=== PATIENT | male | born 1990 | race Caucasian/White ===

== ENCOUNTER 2020-07-08 05:50 | Emergency (ER) | payer SELFPAY ==
[2016-11-11 07:29] VITALS: BMI 32.1
== END 2020-07-08 06:23 | disposition home or self-care (01) ==
LOC: ED 12:14
PROVIDERS: Emergency Provider Emergency Medicine
DX: K08.89 Other specified disorders of teeth and supporting structures (principal); F17.200 Nicotine dependence, unspecified, uncomplicated
CPT/HCPCS: 99283

== ENCOUNTER 2021-01-29 12:55 | Emergency (ER) | payer SELFPAY ==
[2021-01-29 12:55] VITALS: BP 160/98; PULSE 88; RESP 17; TEMP 36.9; O2SAT 98; BMI 32.1
--- NOTE | 2021-01-29 13:05 | EX.ED.DYSGE1 ---
HPI History of Present Illness Chief Complaint: Rash Narrative Narrative: Patient presents with a rash on his hands and left nipple, the rash on his hands he gets most marsh for the past few years, however the rash on his left nipple has been ongoing for 2 months. No fevers chills cough or congestion. No other symptoms. PFSH PFSH Home Medications albuterol sulfate [Ventolin HFA] 1 - 2 puff INHALATION Q4H PRN PRN #1 inhaler 11/11/16 [Rx Last Taken Unknown] pseudoephedrine-guaifenesin [Mucinex D ER 1,200-120 mg Tab] 1 ea PO BID 10 Days tab.er.12h 11/11/16 [Rx Last Taken Unknown] triamcinolone acetonide [Nasacort] 1 spray NS BID #1 nasal.sry 11/11/16 [Rx Last Taken Unknown] triamcinolone acetonide 1 applic TOPICAL TID #30 g 01/29/21 [Rx Last Taken Unknown] Allergy/AdvReac Type Severity Reaction Status Date / Time No Known Allergies Allergy Verified 01/29/21 12:56 Social History Smoking Status: Current every day smoker ROS ROS ED ROS Narrative Past medical history: Reviewed, negative Medications: Reviewed Social history: Noncontributory Review of systems: All systems negative except as indicated General: No fever ENT: No mucosal involvement Cardiovascular: Negative Musculoskeletal: As in HPI Skin: As in HPI Hematologic: No easy bleeding or easy bruising EXAM Physical Exam Narrative Exam Narrative: Physical exam General: Well nourished, Well developed, No Acute Distress Head: Normocephalic, Atraumatic Eyes: Conjunctiva not pale ENT: Moist mucous membranes no mucosal involvement. Neck: Supple, Nontender, No lymphadenopathy Cardiovascular: Normal pulses Respiratory: No distress Back: Nontender, Normal Inspection. Negative for: CVA tenderness Extremities: There are some slight plaques in between the fingers of the hands consistent with eczema Skin: Patient has plaque around the left nipple area consistent with eczema Const Vital Signs: 01/29/21 12:55 Temperature 98.4 F Temperature Source Temporal Pulse Rate 88 Respiratory Rate 17 Blood Pressure 160/98 H Blood Pressure Mean 118 Pulse Ox 98 Oxygen Delivery Method Room Air MDM MDM MDM Narrative Medical decision making narrative: Patient will be treated with steroid cream, I advised him to moisturize and follow-up with his doctor. Discharge Plan Triage Chief Complaint: Rash ED Provider: Armando Graves Dx/Rx/DC Orders Clinical Impression: AD (atopic dermatitis) Instructions: ED Atopic Dermatitis (Adult) Prescriptions: New triamcinolone acetonide 0.1 % cream 1 applic topical TID Qty: 30 RF: 0 No Action albuterol sulfate [Ventolin HFA] 1 INHALER inhaler 1 - 2 puff inhalation Q4H PRN PRN (Reason: Wheezing) Qty: 1 RF: 0 pseudoephedrine-guaifenesin [Mucinex D Maximum Strength] 1 EACH tablet extended release 12 hr 1 ea PO BID 10 Days RF: 0 triamcinolone acetonide [Nasacort] 1 SPRAY aerosol,spray 1 spray NS BID Qty: 1 RF: 0 Primary Care Provider: Care Physician,No Primary Referrals: Truong Wells MD [NON-STAFF] - 3-5 Days Care Physician,No Primary [Primary Care Provider] - Disposition Disposition: Home, Self Care
== END 2021-01-29 13:27 | disposition home or self-care (01) ==
LOC: ED 13:25
PROVIDERS: Emergency Provider Emergency Medicine
DX: L20.9 Atopic dermatitis, unspecified (principal); F17.200 Nicotine dependence, unspecified, uncomplicated
CPT/HCPCS: 99282

== ENCOUNTER 2021-02-25 10:31 | Emergency (ER) | payer SELFPAY ==
[2021-02-25 10:32] VITALS: BP 180/114; PULSE 114; RESP 18; TEMP 36.2; O2SAT 100; BMI 38.9
--- NOTE | 2021-02-25 10:34 | ED.RN ---
CALLED FOR EKG AT 1034.
--- NOTE | 2021-02-25 10:44 | EKG12_ITS ---
Test Reason : PALPS Blood Pressure : / mmHG Vent. Rate : 092 BPM Atrial Rate : 092 BPM P-R Int : 140 ms QRS Dur : 094 ms QT Int : 350 ms P-R-T Axes : 059 043 067 degrees QTc Int : 432 ms Normal sinus rhythm Normal ECG Confirmed by ADI MCBRIDE, MARY ([id number]), manager editorial KATHRYN ALVARADO ([id number]) on 02/27/2021 1:06:34 PM Referred By: SUNITHA Confirmed By:MARY JOSHI MD
--- NOTE | 2021-02-25 10:44 | EX.ED.DYSGE1 ---
HPI History of Present Illness Chief Complaint: Palpitations Detail of Chief Complaint: Palpitations and racing heart for several days Informant: patient Narrative Narrative: Patient presents to the emergency department complaining of palpitations and racing heart for the last several days. Patient is not sure if he is having increased anxiety as the cause of his symptoms. Patient states that he has not been officially diagnosed with anxiety or depression and is not on any medications. Patient states that he has been under a lot of stress and typically he has seasonal affective disorder where he feels more down in the wintertime. Over the last several days he is having hard time sleeping at night because he feels like his heart is racing or skipping beats. Patient states that sometimes when he lays on his left side feels like symptoms are worse. He denies any chest pain. Patient is concerned because his father has history of palpitations but is not sure what kind of palpitations. Patient denies any syncopal episodes. He denies recent illness. Patient tells me he is felt similar episodes in the past when he has been under stress. Prior similar symptoms: Yes PFSH PFSH Medical History Anxiety Asthma Depression Smoker Home Medications triamcinolone acetonide 1 applic TOPICAL TID #30 g 01/29/21 [Rx Last Taken Unknown] hydroxyzine pamoate [Vistaril] 25 mg PO Q8H PRN #20 cap 02/25/21 [Rx Last Taken Unknown] Allergy/AdvReac Type Severity Reaction Status Date / Time No Known Allergies Allergy Verified 02/25/21 10:32 Surgical History History of tonsillectomy and adenoidectomy Social History Smoking Status: Current every day smoker tobacco type: cigarettes ROS ROS ED Constitutional Constitutional ED: Reports systems reviewed and no addt'l complaints, except as documented; Denies body ache(s), change in weight or chills Eyes Eyes: Denies acute decrease in peripheral vision, change in vision, double vision or loss of vision ENT ENT ED: Reports none; Denies ear pain, lip swelling, loss taste/smell, neck pain, otalgia or sore throat Cardiovascular Cardiovascular: Reports none, palpitations and racing heartbeat; Denies abdominal pain, chest pain with activity, leg edema, lightheadedness, rapid heart rate or syncope Respiratory/Chest Respiratory/Chest: Reports none; Denies change in mental status, dry cough, dyspnea, hemoptysis, shortness of breath at rest or shortness of breath with exertion Gastrointestinal Gastrointestinal: Reports none; Denies abdominal pain, change in stool character, diarrhea, hematemesis, hematochezia, melena, rectal bleeding or vomiting Genitourinary Genitourinary ED: Reports none; Denies abdominal discomfort, anuria, dysuria, genital pain or polyuria Musculoskeletal Musculoskeletal: Reports none; Denies arthralgias, back pain, difficulty walking, extremity pain, muscle weakness or myalgias Integumentary Reports none; Denies abscess or rash Neurologic Neurologic: Reports none; Denies abnormal gait, confusion, focal weakness, frequent falls, headache(s), loss of vision, numbness, paresthesias, radicular pain, vertigo or weakness Psychiatric Psychiatric: Reports systems reviewed and no addt'l complaints, except as documented and none; Denies behavioral changes, confusion, difficulty concentrating, hallucinations, suicidal ideation, tactile hallucinations or visual hallucinations Endocrine Endocrinology: Denies none, cold intolerance, excessive sweating, fatigue or heat intolerance Hematologic/Lymphatic Hematologic/Lymphatic: Reports none; Denies anemia, easy bleeding or easy bruising Allergic/Immunologic Allergic/Immunologic ED: Denies as per HPI, none, lip swelling, mouth swelling, throat swelling, tongue swelling or hives EXAM Physical Exam Const Vital Signs: 02/25/21 10:32 02/25/21 11:05 Temperature 97.2 F L Temperature Source Temporal Pulse Rate 114 H Respiratory Rate 18 Respiratory Effort Normal Non-Labored Blood Pressure 180/114 H Blood Pressure Mean 136 Pulse Ox 100 Oxygen Delivery Method Room Air Positive well nourished and well developed General Appearance ED: well developed and NAD HEENT Reports TM's clear and moist mucous membranes normocephalic and atraumatic; Negative for trauma or tenderness Tympanic Membrane ED: Yes TM's clear Eyes PERRL and EOMs intact bilaterally General Eye ED: Negative for pale conjunctiva or scleral icterus Neck no lymphadenopathy, supple and no JVD General: Negative for tenderness Chest Wall inspection of chest normal and palpation of chest normal Chest: Negative for tenderness Resp normal respiratory effort and clear to auscultation bilaterally Effort and Inspection: Negative for respiratory distress or pain with movement Auscultation: Negative for rhonchi, wheezes or diminished lung sounds Cardio regular rate, regular rhythm, S1 normal heart sound, S2 normal heart sound and no murmurs Peripheral Pulses: pulses 2+ throughout GI normal to inspection, nondistended, normoactive bowel sounds, soft to palpation, non-tender, non-distended and no masses Back/Spine no CVA tenderness and no thoracic nor lumbar tenderness Extremity normal to inspection General Extremety ED: Negative for edema General Extremity: Negative for edema Neuro oriented x3, CN's II-XII intact bilaterally, no sensory deficits noted and gait normal Sensorium / Orientation: awake, alert, oriented to person, oriented to place and oriented to time Motor Exam: strength 5/5 throughout and strength abnormal Psych mental status grossly normal Skin no rashes or lesions noted and no wounds MDM MDM MDM Narrative Medical decision making narrative: EKG obtained arrival and patient placed on a monitoring and evaluation advisor. His work-up is unremarkable. No ectopy noted while he was here. I suspect symptoms may be stress related or anxiety related. I will write him for Vistaril as needed. Patient will be given referral to primary care physician for follow-up. He is advised to return if chest pain, persistent tachycardia, exertional dyspnea, or condition should worsen anyway. Lab Data Attestation: I reviewed the patient's lab results. Labs: Laboratory Results - last 24 hr 02/25/21 02/25/21 11:04 11:04 WBC 7.2 RBC 5.12 Hgb 14.9 Hct 43.2 MCV 84.4 MCH 29.1 MCHC 34.5 RDW Std Deviation 36.7 RDW Coeff of Maria Luz 12.1 Plt Count 345 MPV 9.1 Immature Gran % (Auto) 0.300 Neut % (Auto) 54.8 Lymph % (Auto) 32.4 Woodward % (Auto) 8.9 Eos % (Auto) 2.8 Baso % (Auto) 0.8 Absolute Neuts (auto) 4.0 Absolute Lymphs (auto) 2.34 Nucleated RBC % 0 Sodium 141 Potassium 3.4 L Chloride 109 H Carbon Dioxide 30.0 Anion Gap 2 L BUN 12 Creatinine 0.99 Estim Creat Clear Calc 118.32 Est GFR (MDRD) Af Amer 116 Est GFR (MDRD) Non-Af 96 BUN/Creatinine Ratio 12.1 Glucose 110 H Calcium 9.3 Troponin I High Sens 6 EKG Initial EKG: Comments: Sinus rhythm with a ventricular rate of 92 bpm with no acute ST segment changes Prior EKG tracings: not available for review Discharge Plan Triage Chief Complaint: Palpitations ED Provider: Isaac Monson Dx/Rx/DC Orders Clinical Impression: Heart palpitations, Anxiety Instructions: ED Anxiety Reaction, ED Palpitations Prescriptions: New hydroxyzine pamoate [Vistaril] 25 mg capsule 25 mg PO Q8H PRN (Reason: anxiety) Qty: 20 RF: 0 No Action triamcinolone acetonide 0.1 % cream 1 applic topical TID Qty: 30 RF: 0 Primary Care Provider: Care Physician,No Primary Referrals: Tab Gage MD [STAFF PHYSICIAN] - 3-5 Days Care Physician,No Primary [Primary Care Provider] - Disposition Disposition: Home, Self Care
--- NOTE | 2021-02-25 10:48 | NURSING ---
NO OLD EKGS
[2021-02-25 11:15] LABS: Absolute Lymphocyte Count 2.34 X10^3/uL (0.83-4.51); Basophil# 0.06 X10^3/uL; Basophil% 0.8 % (0-1); Eosinophils% 2.8 % (0-5); Hematocrit 43.2 % (40-54); Hemoglobin 14.9 g/dL (13.0-16.5); Lymphocyte # 2.34 X10^3/ul (0.83-4.51); Lymphocyte % 32.4 % (19-41); Mean Corp Hgb Conc 34.5 g/dL (32-36); Mean Corpuscular Hgb 29.1 pg (27.0-32.0); Mean Corpuscular Volume 84.4 fL (80-94); Mean Platelet Vol. 9.1 fl (6.2-12.0); Monocyte# 0.64 X10^3/uL; Monocyte% 8.9 % (0-10); NRBC Flagged by Analyzer 0 % (0-5); Neutrophil # 3.97 X10^3/uL (2.7-7.7); Neutrophil % 54.8 % (47-70); Platelet Count 345 K/mm3 (150-450); RBC Distribution Width CV 12.1 % (11.6-14.6); RBC Distribution Width SD 36.7 fl (35.1-43.9); Red Blood Count 5.12 M/mm3 (4.6-6.2); White Blood Count 7.2 K/mm3 (4.4-11.0)
[2021-02-25 11:32] LABS: Anion Gap 2 (5-15); BUN 12 mg/dL (7-18); BUN/Creat Ratio 12.1 RATIO (10-20); Calcium,Total 9.3 mg/dL (8.5-10.1); Chloride 109 mmol/L (98-107); Creatinine, Serum 0.99 mg/dL (0.70-1.30); EST Glomerular Filtration Rate 96 mL/min (>60); Est Glom Filt Rate - Afr Amer 116 mL/min (>60); Estimated Creatinine Clearance 118.32 ml/min; Glucose 110 mg/dL (74-106); Potassium 3.4 mmol/L (3.5-5.1); Sodium Level 141 mmol/L (136-145); Troponin-I HS 6 pg/mL (3.0-78.0)
[2021-02-25 12:14] VITALS: BP 138/89; PULSE 79; RESP 20; O2SAT 98
== END 2021-02-25 12:15 | disposition home or self-care (01) ==
PROVIDERS: Emergency Provider Emergency Medicine
DX: R00.2 Palpitations (principal); F41.9 Anxiety disorder, unspecified; F17.210 Nicotine dependence, cigarettes, uncomplicated
CPT/HCPCS: 80048; 84484; 85025; 93005; 99283; A4216

== ENCOUNTER 2021-08-16 12:23 | Emergency (ER) | payer SELFPAY ==
[2021-08-16 12:24] VITALS: BP 165/112; PULSE 75; RESP 18; TEMP 36.7; O2SAT 98; BMI 38.2
[2021-08-16 12:25] VITALS: BP 165/112; PULSE 75; RESP 18; TEMP 36.7; O2SAT 98
[2021-08-16] MEDS: Naproxen 500 MG Tablet PO (13:00)
[2021-08-16] MEDS: Amox/Clavulanate 875 MG Tablet PO (13:00)
[2021-08-16 13:01] VITALS: RESP 18
--- NOTE | 2021-08-16 13:01 | EDS_ITS ---
HPI History of Present Illness Chief Complaint: Dental Narrative Narrative: 30-year-old male with history of dental issues presenting with dental pain on the right mandibular teeth. He states that is most of them that hurt. He denies any facial swelling. He denies any difficulty swallowing or breathing. No fever or chills. He does state that he had a problem with this about a year ago and was put on antibiotics but did not follow-up with a dental professional. He initially was going to go to [facility], but when he was told he would have to wait 2 months he canceled his appointment. He states he makes about 800 hours a month and cannot afford a dental procedure otherwise. PFSH PFSH Medical History Anxiety Asthma Depression Smoker Home Medications hydroxyzine pamoate [Vistaril] 25 mg PO Q8H PRN #20 cap 02/25/21 [Rx Last Taken Unknown] amoxicillin-pot clavulanate 1 tab PO BID #20 tab 08/16/21 [Rx Last Taken Unknown] naproxen [Naprosyn] 500 mg PO BID PRN #20 tab 08/16/21 [Rx Last Taken Unknown] Allergy/AdvReac Type Severity Reaction Status Date / Time No Known Allergies Allergy Verified 08/16/21 12:25 Surgical History History of tonsillectomy and adenoidectomy Social History Smoking Status: Current every day smoker tobacco type: cigarettes ROS ROS ED Constitutional Constitutional ED: Denies chills or fever(s) Eyes Eyes: Denies blurry vision or change in vision ENT ENT ED: Reports other Details: Dental pain ; Denies rhinorrhea or sore throat Cardiovascular Cardiovascular: Denies chest pain or palpitations Respiratory/Chest Respiratory/Chest: Denies cough or dyspnea Gastrointestinal Gastrointestinal: Denies abdominal pain, nausea or vomiting Genitourinary Genitourinary ED: Denies dysuria or hematuria Musculoskeletal Musculoskeletal: Denies arthralgias or myalgias Integumentary Denies abscess or rash Neurologic Neurologic: Denies headache(s) or weakness EXAM Physical Exam Const Vital Signs: 08/16/21 12:24 08/16/21 12:25 Temperature 98.1 F 98.1 F Temperature Source Temporal Oral Pulse Rate 75 75 Respiratory Rate 18 18 Blood Pressure 165/112 H 165/112 H Blood Pressure Mean 129 129 Pulse Ox 98 98 Oxygen Delivery Method Room Air Room Air Positive well nourished General Appearance ED: NAD HEENT HEENT Narrative: Multiple dental caries. He has tenderness palpation of the right mandibular teeth without any focal area of tenderness. No drainage. All of these teeth are in very poor repair. No sublingual edema. Tongue is nonswollen. Oropharynx patent without stridor. No submandibular fullness or tenderness. No lymphadenopathy. Negative for trauma Mouth ED: Yes lips normal, Yes tongue normal and Yes salivary gland normal Mouth: lips normal, tongue normal and salivary gland normal Teeth and Gingiva: caries and teeth discoloration Throat: posterior oropharynx normal Eyes PERRL and EOMs intact bilaterally Lymph Lymphatic: no lymphadenopathy noted Chest Wall inspection of chest normal Resp normal respiratory effort and clear to auscultation bilaterally Cardio regular rate and regular rhythm Neuro oriented x3 and CN's II-XII intact bilaterally Psych mental status grossly normal Skin no rashes or lesions noted MDM MDM MDM Narrative Medical decision making narrative: Patient with multiple dental caries and concern for dental infection as he has had this before. He had antibiotics about a year ago without follow-up. No facial swelling or sign of Ludewig's angina. Patient request antibiotics until he can get dental follow-up. He started on Augmentin in the ER and given Naprosyn for pain. He was given a dental referral sheet. Return precautions discussed. Impression: 1. Dental caries 2. Dental abscess Lab Data Attestation: I reviewed the patient's lab results. Discharge Plan Triage Chief Complaint: Dental ED Provider: Keith Alexis Dx/Rx/DC Orders Instructions: ED Dental Abscess Prescriptions: New amoxicillin-pot clavulanate 875-125 mg tablet 1 tab PO BID Qty: 20 RF: 0 naproxen [Naprosyn] 500 mg tablet 500 mg PO BID PRN (Reason: pain) Qty: 20 RF: 0 No Action hydroxyzine pamoate [Vistaril] 25 mg capsule 25 mg PO Q8H PRN (Reason: anxiety) Qty: 20 RF: 0 Primary Care Provider: Care Physician,No Primary Referrals: [facility] [Provider Group] Care Physician,No Primary [Primary Care Provider] - Disposition Disposition: Home, Self Care Discharge Date/Time: 08/16/21 13:02
== END 2021-08-16 13:02 | disposition home or self-care (01) ==
PROVIDERS: Emergency Provider Student in an Organized Health Care Education/Training Program; Visit Provider Student in an Organized Health Care Education/Training Program
DX: K02.9 Dental caries, unspecified (principal); K04.7 Periapical abscess without sinus; F17.210 Nicotine dependence, cigarettes, uncomplicated
CPT/HCPCS: 99283

== ENCOUNTER 2022-01-31 11:00 | Emergency (ER) | payer MEDICAID, SELFPAY ==
[2022-01-31 11:01] VITALS: BP 152/94; PULSE 92; RESP 18; TEMP 36.1; O2SAT 98; BMI 35.9
--- NOTE | 2022-01-31 11:11 | ED.VIS.DENTA ---
HPI <NIKOS Mcnulty - Last Filed: 01/31/22 11:44> History of Present Illness Chief Complaint: Dental Narrative Narrative: 31-year-old male states his right upper wisdom tooth has been cracked for a long time and a week ago it started becoming painful. His face seems swollen in the mornings but he does sleep on his right side. The swelling kind of resolved throughout the day. He has no fever chills or difficulty swallowing or breathing. He states he is getting insurance to see a dentist. PFSH <NIKOS Mcnutly - Last Filed: 01/31/22 11:44> [facility] Medical History Anxiety Asthma Depression Smoker Home Medications NK 01/31/22 [History Last Taken Unknown] Allergy/AdvReac Type Severity Reaction Status Date / Time amoxicillin AdvReac Rash Verified 01/31/22 11:02 Surgical History History of tonsillectomy and adenoidectomy Social History Smoking Status: Current every day smoker tobacco type: cigarettes ROS <NIKOS Mcnulty Last Filed: 01/31/22 11:44> ROS ED ROS Narrative Constitutional: Negative for fever, chills, malaise. Eyes: Negative for visual change. ENT: Positive for dental pain. Negative for sore throat, ear pain, rhinorrhea. CVS: Negative for palpitations, chest pain, syncope. Respiratory: Negative for shortness of breath, cough, orthopnea. GI: Negative for abdominal pain, nausea, vomiting. : Negative for dysuria, hematuria or frequency. Neuro: Negative for headache. Skin: Negative for rash, abscess, or wound. Musc: Negative for joint pain, swelling, trauma. Heme: Negative for easy bruising, bleeding, lymphadenopathy. EXAM <NIKOS Mcnulty Last Filed: 01/31/22 11:44> Physical Exam Narrative Exam Narrative: CONST: Patient sitting in no acute distress. EYES: Normal inspection. ENT: Skin appears normal with no swelling, right upper wisdom tooth is cracked and tender to palpation but there is no periapical abscess, multiple teeth have fillings and caries, no trismus or tongue elevation, sublingual space is soft, airway intact, NECK: Normal inspection, no masses or lymphadenopathy, trachea midline. RESP: No respiratory distress, CTAB. CVS: Regular rate and rhythm, no murmur, no gallop. SKIN: Color normal, no rash, warm, dry, intact. EXTREMITIES: Normal appearance, no pedal edema. NEURO: Oriented x4. PSYCH: Normal affect. Const Vital Signs: 01/31/22 11:01 Temperature 97 F L Temperature Source Temporal Pulse Rate 92 Respiratory Rate 18 Blood Pressure 152/94 H Blood Pressure Mean 113 Pulse Ox 98 Oxygen Delivery Method Room Air <Dr. Marino Hudson DO - Last Filed: 01/31/22 12:11> Physical Exam Const Vital Signs: 01/31/22 11:01 Temperature 97 F L Temperature Source Temporal Pulse Rate 92 Respiratory Rate 18 Blood Pressure 152/94 H Blood Pressure Mean 113 Pulse Ox 98 Oxygen Delivery Method Room Air MDM <NIKOS Mcnulty - Last Filed: 01/31/22 11:44> [facility] Narrative Medical decision making narrative: Patient has 1 week of dental pain from his right upper wisdom tooth which is partially avulsed. He is tender over this area but there is no sign of periapical abscess or deep space infection. He has a penicillin allergy so was placed on clindamycin and will continue [id number] analgesia. Patient was given a dental referral sheet and was discharged in stable condition. <Dr. Marino Hudson DO - Last Filed: 01/31/22 12:11> [facility] Treatment and Re-Evaluation Narrative: Attending note: Patient seen and evaluated with engraver automatic. I perform my own [id number] evaluation. I agree with the plan of work-up. Increasing right upper dental pain for the past week. History of a fracture of his wisdom teeth previously. History of similar. Working on healthcare coverage to see a dentist. Penicillin allergy. Exam tender to percussion tooth #1, no fluctuance or abscess of the gums. Airway patent. Patient started on clindamycin. He is given dental list for follow-up. Discharge Plan Triage Chief Complaint: Dental ED Midlevel Provider: Анна Turner ED Provider: Marino Hudson Dx/Rx/DC Orders Clinical Impression: Dental abscess Instructions: Dental Abscess Prescriptions: No Action NK Primary Care Provider: Care Physician,No Primary Referrals: Care Physician,No Primary [Primary Care Provider] - Activity Restrictions/Additional Instructions: Take all of the antibiotics and continue Tylenol or ibuprofen as needed for pain. Please follow-up with a dentist. Disposition Disposition: Home, Self Care Discharge Date/Time: 01/31/22 12:05
== END 2022-01-31 12:05 | disposition home or self-care (01) ==
PROVIDERS: Emergency Provider Emergency Medicine; Visit Provider Emergency Medicine
DX: K04.7 Periapical abscess without sinus (principal); F17.210 Nicotine dependence, cigarettes, uncomplicated
CPT/HCPCS: 99282

== ENCOUNTER 2022-02-23 18:56 | Emergency (ER) | payer MEDICAID, SELFPAY ==
[2022-02-23 18:57] VITALS: BP 155/101; PULSE 92; RESP 15; TEMP 36.4; O2SAT 99; BMI 35.9
--- NOTE | 2022-02-23 20:16 | EX.ED.DYSGE1 ---
HPI History of Present Illness Chief Complaint: Abscess Detail of Chief Complaint: Redness and swelling to right upper face Informant: patient Narrative Narrative: Patient presents with redness and swelling to the right upper face that started 1 week ago. Patient states that he had a little papule there for about a year but never bothered him. 1 week ago he went to the dentist and then was told he would need to see an oral surgeon to have some teeth extracted. That evening patient noticed increased swelling to the upper portion of the face. Denies any fever. PFSH PFSH Medical History Anxiety Asthma Depression Smoker Home Medications clindamycin HCl 300 mg capsule (Cleocin HCl) 300 mg PO Q6H #40 CAPSULES 02/23/22 [Rx Last Taken Unknown] Allergy/AdvReac Type Severity Reaction Status Date / Time amoxicillin AdvReac Rash Verified 01/31/22 11:02 Surgical History History of tonsillectomy and adenoidectomy Social History Smoking Status: Current every day smoker tobacco type: cigarettes ROS ROS ED Review of Systems ROS Unobtainable: other Constitutional Constitutional ED: Reports lethargy; Denies chills, fever(s), sweats or weight loss Eyes Eyes: Denies blurry vision, change in vision or diplopia ENT ENT ED: Reports other Details: Redness and swelling to the right upper face ; Denies rhinorrhea or sore throat Cardiovascular Cardiovascular: Denies chest pain, orthopnea or racing heartbeat Respiratory/Chest Respiratory/Chest: Denies cough, dyspnea, dyspnea on exertion, orthopnea or sputum Gastrointestinal Gastrointestinal: Denies abdominal pain, diarrhea, nausea or vomiting Genitourinary Genitourinary ED: Denies dysuria, hematuria or urinary frequency Musculoskeletal Musculoskeletal: Denies arthralgias, back pain, myalgias or neck pain Integumentary Denies abscess, Abrasions or rash Neurologic Neurologic: Denies headache(s) or weakness Psychiatric Psychiatric: Denies anxiety, depression or suicidal thoughts Endocrine Endocrinology: Denies polydipsia, polyphagia or polyuria Hematologic/Lymphatic Hematologic/Lymphatic: Denies easy bleeding, easy bruising or lymphadenopathy Allergic/Immunologic Allergic/Immunologic ED: Denies mouth swelling, tongue swelling or urticaria EXAM Physical Exam Const Vital Signs: 02/23/22 18:57 02/23/22 20:19 Temperature 97.6 F L 97.6 F L Temperature Source Temporal Temporal Pulse Rate 92 92 Respiratory Rate 15 15 Blood Pressure 155/101 H 155/101 H Blood Pressure Mean 119 119 Pulse Ox 99 99 Oxygen Delivery Method Room Air Room Air Positive well nourished and well developed General Appearance ED: well developed and NAD HEENT Reports TM's clear and moist mucous membranes HEENT Narrative: Patient has a soft tissue abscess of the right upper face over the area of the zygomatic arch. Area is fluctuant and slightly tender to palpation. No significant cellulitic changes noted. normocephalic and atraumatic; Negative for trauma or tenderness Tympanic Membrane ED: Yes TM's clear Eyes PERRL and EOMs intact bilaterally General Eye ED: Negative for pale conjunctiva or scleral icterus Neck no lymphadenopathy, supple and no JVD General: Negative for tenderness Chest Wall inspection of chest normal and palpation of chest normal Chest: Negative for tenderness Resp normal respiratory effort and clear to auscultation bilaterally Effort and Inspection: Negative for respiratory distress or pain with movement Auscultation: Negative for rhonchi, wheezes or diminished lung sounds Cardio regular rate, regular rhythm, S1 normal heart sound, S2 normal heart sound and no murmurs Peripheral Pulses: pulses 2+ throughout GI normal to inspection, nondistended, normoactive bowel sounds, soft to palpation, non-tender, non-distended and no masses Back/Spine no CVA tenderness and no thoracic nor lumbar tenderness Extremity normal to inspection General Extremety ED: Negative for edema General Extremity: Negative for edema Neuro oriented x3, CN's II-XII intact bilaterally, no sensory deficits noted and gait normal Sensorium / Orientation: awake, alert, oriented to person, oriented to place and oriented to time Motor Exam: strength 5/5 throughout and strength abnormal Psych mental status grossly normal Skin no rashes or lesions noted and no wounds MDM MDM MDM Narrative Medical decision making narrative: After incision and drainage of suspected abscess patient was given a dose of clindamycin p.o. Patient will be started on clindamycin. I suspect this may be a sebaceous type cyst. He is advised that it could really accumulate. I will refer him to ENT for follow-up. Patient will be started on clindamycin. He is advised to return if increasing pain, redness, swelling, or condition worsen anyway. Procedures Other Procedures Procedure(s): Patient was offered incision and drainage of the suspected facial abscess to which she agreed. Area of the skin was cleansed with Shur-Clens. I anesthetized locally with 1% lidocaine total 2 cc. Using an 11 blade I made a stab incision approximately 8 mm and immediate obtained free-flowing thick purulent cottage cheeselike debris from the wound that was expressed. The debris was very foul-smelling. Patient tolerated procedure well. Discharge Plan Triage Chief Complaint: Abscess ED Provider: Isaac Monson Dx/Rx/DC Orders Clinical Impression: Sebaceous cyst Instructions: ED Abscess Incision And Drainage Prescriptions: New clindamycin HCl [Cleocin HCl] 300 mg capsule 300 mg PO Q6H Qty: 40 0RF Primary Care Provider: Care Physician,No Primary Referrals: Haris Joseph MD [Med Staff - Active Staff] - 3-5 Days Care Physician,No Primary [Primary Care Provider] - Disposition Disposition: Home, Self Care
[2022-02-23 20:19] VITALS: BP 155/101; PULSE 92; RESP 15; TEMP 36.4; O2SAT 99
[2022-02-23] MEDS: Lidocaine 1% (20 ml mdv) 20 ML Vial INFILT (20:45)
[2022-02-23] MEDS: Clindamycin HCl 150 MG Capsule 300 MG PO (20:45)
== END 2022-02-23 20:48 | disposition home or self-care (01) ==
LOC: ED 20:36
PROVIDERS: Emergency Provider Emergency Medicine; Visit Provider Emergency Medicine
DX: L72.3 Sebaceous cyst (principal); F17.210 Nicotine dependence, cigarettes, uncomplicated; J45.909 Unspecified asthma, uncomplicated
CPT/HCPCS: 10060; 99283

== ENCOUNTER 2022-09-16 13:11 | Emergency (ER) | payer MEDICAID, SELFPAY ==
[2022-09-16 13:12] VITALS: BP 137/105; PULSE 83; RESP 18; TEMP 36.1; O2SAT 98; BMI 42.6
--- NOTE | 2022-09-16 13:38 | ED.VIS.DENTA ---
HPI History of Present Illness Chief Complaint: Dental Informant: patient Narrative Narrative: Patient presents with concern for dental infection. Patient states he has had problems with his teeth for a long time. He was supposed to have his wisdom teeth pulled because they keep breaking and getting infected. He followed up with a dentist and then was told that the dentist was not going to pull it and the patient needs to see an oral surgeon. Patient states he cannot find a single oral surgeon that would take Medicaid so he just cannot get it fixed even though he has tried. He states about a week ago he had another piece break off the tooth. It drained a little blood. He states he can taste the infection that drains from it. No fevers or chills. No trouble swallowing or eating. No trouble breathing. He is not on any immunosuppressive drugs. Not diabetic. No rashes or joint pains. PFSH PFSH Medical History Anxiety Asthma Depression Smoker Home Medications clindamycin HCl 300 mg capsule (Cleocin HCl) 300 mg PO Q6H #40 CAPSULES 09/16/22 [Rx Last Taken Unknown] Allergy/AdvReac Type Severity Reaction Status Date / Time amoxicillin AdvReac Rash Verified 01/31/22 11:02 Surgical History History of tonsillectomy and adenoidectomy Social History Smoking Status: Current every day smoker tobacco type: cigarettes ROS ROS ED Constitutional Constitutional ED: Denies chills or fever(s) Eyes Eyes: Denies change in vision ENT ENT ED: Reports other Details: See history of present illness ; Denies ear pain, rhinorrhea or sore throat Cardiovascular Cardiovascular: Denies chest pain or palpitations Respiratory/Chest Respiratory/Chest: Denies cough or dyspnea Gastrointestinal Gastrointestinal: Denies nausea or vomiting Musculoskeletal Musculoskeletal: Reports other Details: No joint pain or swelling. ; Denies arthralgias or back pain Integumentary Denies rash Neurologic Neurologic: Denies headache(s) Hematologic/Lymphatic Hematologic/Lymphatic: Denies lymphadenopathy EXAM Physical Exam Narrative Exam Narrative: CONSTITUTIONAL: Patient is nontoxic in appearance. The patient looks comfortable. Work of breathing looks normal. HEENT: No notable trauma. Mucous membranes moist. Patient has normal speech. Handle secretions easily. No swelling or pain with motion of the tongue. He does have multiple teeth that have fillings and he has several cavities. The right upper wisdom tooth has fractures and missing pieces. There is some erythema around it but not a lot of swelling. No bleeding at this time. EYES: No conjunctival injection. No icterus. No proptosis or pain with motion. NECK:No JVD. No stridor. CARDIOVASCULAR: Regular rate. Regular rhythm. No notable murmur. No JVD. RESPIRATORY: No respiratory distress. Breathing is unlabored. No wheezes. No rhonchi. No rales. No pain with a deep breath. No chest wall tenderness. GASTROINTESTINAL: Not distended. Bowel sounds are normal. No tenderness. GENITOURINARY: No CVA tenderness. MUSCULOSKELETAL: Atraumatic. No peripheral edema. NEUROLOGICAL: Patient is alert and appropriate. No focal deficit noted. SKIN: No noted rashes. No diaphoresis. PSYCHIATRIC: Patient is calm. Mood is appropriate. Const Vital Signs: 09/16/22 13:12 Temperature 96.9 F L Temperature Source Temporal Pulse Rate 83 Respiratory Rate 18 Blood Pressure 137/105 H Blood Pressure Mean 115 Pulse Ox 98 Oxygen Delivery Method Room Air MDM MDM MDM Narrative Medical decision making narrative: Patient has signs and symptoms consistent with an infected tooth. He will be started on clindamycin. He has allergies to amoxicillin and has not tolerated penicillin. We will give him a dental resource sheet. But he states he is called about every oral surgeon in the region and none of them take Medicaid. We discussed reasons to return. Discharge Plan Triage Chief Complaint: Dental ED Provider: Daniel Justice Dx/Rx/DC Orders Clinical Impression: Dental infection Instructions: Dental Abscess Prescriptions: New clindamycin HCl [Cleocin HCl] 300 mg capsule 300 mg PO Q6H Qty: 40 0RF Primary Care Provider: Care Physician,No Primary Referrals: Care Physician,No Primary [Primary Care Provider] - Activity Restrictions/Additional Instructions: Follow-up with dentist soon as possible. Please see dental resource sheet that is provided for some other options. Disposition Disposition: Home, Self Care
== END 2022-09-16 14:06 | disposition home or self-care (01) ==
LOC: ED 14:01
PROVIDERS: Emergency Provider Emergency Medicine; PCP Internal Medicine; Visit Provider Emergency Medicine
DX: K04.7 Periapical abscess without sinus (principal); F17.210 Nicotine dependence, cigarettes, uncomplicated
CPT/HCPCS: 99282

== ENCOUNTER 2022-12-28 19:47 | Emergency (ER) | payer MEDICAID, SELFPAY ==
[2022-12-28 19:47] VITALS: BP 159/104; PULSE 83; RESP 15; TEMP 36; O2SAT 99; BMI 42.0
--- NOTE | 2022-12-28 20:00 | ED.VIS.DENTA ---
HPI History of Present Illness Chief Complaint: Dental Informant: patient Onset/Context/Timing Onset: Today Narrative Narrative: Patient presents with recurrent left lower dental pain. He has a wisdom tooth that is impacted and broken. He states every couple months it will get infected. His regular dentist does not want to manage this and sent him to an oral surgeon. He states with his Medicaid he cannot find an oral surgeon who will see him. He was last here in September for similar complaints. He states typically he will get an antibiotic and I will calm down for a few months. PFSH PFSH Medical History Anxiety Asthma Depression Smoker Home Medications clindamycin HCl 300 mg capsule (Cleocin HCl) 300 mg PO Q6H #40 CAPSULES 09/16/22 [Rx Last Taken Unknown] clindamycin HCl 150 mg capsule 300 mg (2 x 150 mg) PO 4X/DAY #80 CAPSULES 12/28/22 [Rx Last Taken Unknown] naproxen 500 mg tablet (Naprosyn) 500 mg PO BID PRN pain #20 tabs 12/28/22 [Rx Last Taken Unknown] Allergy/AdvReac Type Severity Reaction Status Date / Time amoxicillin AdvReac Rash Verified 12/28/22 19:50 Surgical History History of tonsillectomy and adenoidectomy Social History Smoking Status: Current every day smoker tobacco type: cigarettes ROS ROS ED Constitutional Constitutional ED: Denies chills or fever(s) Eyes Eyes: Denies discharge from eye(s) ENT ENT ED: Reports other Details: Left lower dental pain ; Denies discharge from eye(s), rhinorrhea or sore throat Cardiovascular Cardiovascular: Denies chest pain Respiratory/Chest Respiratory/Chest: Denies cough Gastrointestinal Gastrointestinal: Denies abdominal pain Musculoskeletal Musculoskeletal: Denies back pain or extremity pain Integumentary Denies Abrasions or rash Neurologic Neurologic: Denies headache(s) or weakness Psychiatric Psychiatric: Denies anxiety or depression Allergic/Immunologic Allergic/Immunologic ED: Denies lip swelling or urticaria EXAM Physical Exam Const Vital Signs: 12/28/22 19:47 Temperature 96.8 F L Temperature Source Temporal Pulse Rate 83 Respiratory Rate 15 Blood Pressure 159/104 H Blood Pressure Mean 122 Pulse Ox 99 Oxygen Delivery Method Room Air Positive well nourished and well developed General Appearance ED: well developed HEENT Reports normocephalic and head/scalp atraumatic HEENT Narrative: No facial edema or erythema. Intraoral examination reveals left third mandibular molar to be impacted with surrounding gum edema. No trismus. No mental fullness. Patient tolerating secretions well and speaks with a strong voice. Eyes PERRL and EOMs intact bilaterally Neck no lymphadenopathy and supple Chest Wall inspection of chest normal Resp normal respiratory effort and clear to auscultation bilaterally Cardio regular rate and regular rhythm GI Palpation: soft Extremity normal to inspection Neuro oriented x3 and no sensory deficits noted Sensorium / Orientation: alert Motor Exam: strength 5/5 throughout Psych mental status grossly normal Skin no rashes or lesions noted MDM MDM MDM Narrative Medical decision making narrative: Patient is taking Tylenol at home. I will write him for naproxen as well as clindamycin, first dose is given here. Return instructions provided. Discharge Plan Triage Chief Complaint: Dental ED Provider: Lexus Kang Dx/Rx/DC Orders Clinical Impression: Odontalgia Instructions: ED Dental Pain Prescriptions: New clindamycin HCl 150 mg capsule 300 mg PO 4X/DAY Qty: 80 0RF naproxen [Naprosyn] 500 mg tablet 500 mg PO BID PRN (Reason: pain) Qty: 20 0RF No Action clindamycin HCl [Cleocin HCl] 300 mg capsule 300 mg PO Q6H Qty: 40 0RF Primary Care Provider: Essie Bryan NP Referrals: Essie Bryan NP, [employer]ATER-[facility] [Primary Care Provider] - Disposition Disposition: Home, Self Care
[2022-12-28] MEDS: Clindamycin HCl 150 MG Capsule 300 MG PO (20:05)
[2022-12-28] MEDS: Naproxen 500 MG Tablet PO (20:05)
== END 2022-12-28 20:17 | disposition home or self-care (01) ==
LOC: ED 20:14
PROVIDERS: Emergency Provider Emergency Medicine; PCP Internal Medicine; Visit Provider Emergency Medicine
DX: K08.89 Other specified disorders of teeth and supporting structures (principal); F17.210 Nicotine dependence, cigarettes, uncomplicated
CPT/HCPCS: 99283

== ENCOUNTER 2023-07-17 02:06 | Emergency (ER) | payer MEDICAID, SELFPAY ==
[2023-07-17 02:06] VITALS: BP 143/93; PULSE 84; RESP 16; TEMP 36.2; O2SAT 98; BMI 45.2
--- NOTE | 2023-07-17 02:11 | ED.VIS.DENTA ---
HPI History of Present Illness Chief Complaint: Dental [facility] Medical History Anxiety Asthma Depression Smoker Home Medications clindamycin HCl 150 mg capsule 300 mg (2 x 150 mg) PO 4X/DAY #80 CAPSULES 12/28/22 [Rx Last Taken Unknown] losartan 25 mg tablet 25 mg PO DAILY 07/17/23 [History Last Taken Unknown] sertraline 50 mg tablet 50 mg PO DAILY 07/17/23 [History Last Taken Unknown] Allergy/AdvReac Type Severity Reaction Status Date / Time amoxicillin AdvReac Rash Verified 07/17/23 02:09 Surgical History History of tonsillectomy and adenoidectomy Social History Smoking Status: Current every day smoker tobacco type: cigarettes EXAM Physical Exam Const Vital Signs: 07/17/23 02:06 07/17/23 02:32 Temperature 97.2 F L 96.5 F L Temperature Source Temporal Pulse Rate 84 73 Respiratory Rate 16 20 H Blood Pressure 143/93 H 144/99 H Blood Pressure Mean 109 114 Pulse Ox 98 96 Oxygen Delivery Method Room Air MDM MDM MDM Narrative Medical decision making narrative: HISTORY OF PRESENT ILLNESS: 32-year-old male presents with concern for dental pain. Notes he is currently antibiotics however pain was getting worse. States he is on clindamycin approxi-1 month ago. States he did not schedule appointment with his dentist. States symptoms gotten worse and has been on oral Keflex without any relief. He has tried muscle relaxers, Orajel, Tyle ibuprofen without relief. Denies any trouble swallowing, sore throat, submandibular edema. REVIEW OF SYSTEMS: Pertinent positives: Dental pain Pertinent negatives: Difficulty swallowing, throat closure, sore throat PHYSICAL EXAM: Nursing triage notes reviewed, Vital signs reviewed Constitutional: please see mdm HENT: MMM, no evidence of dental abscess, no submandibular edema or induration, no tonsillar exudates or erythema, uvula midline, patient was controlling secretions, no drooling, no trimus, no dysphonia Eyes: Pupils equal round and reactive to light, Extraocular muscles intact Neck: No stridor, no JVD, full neck ROM Lungs: Clear to auscultation, No wheezing or rales. No increased work of breathing, no conversational dyspnea, no accessory muscle use, no nasal flaring. No respiratory distress noted Heart: Regular rate and rhythm, No murmurs, No rubs and No gallops, 2+ distal pulses (radial, femoral, posterior tibial) in all extremities MEDICAL DECISION MAKING: Chief Complaint: Dental pain External records reviewed: Prior ED records reviewed: Seen in the ED in September and December 2022 for dentalgia and dental infection Factors affecting care: Chronic dental issues, hypertension MDM Narrative: The patient was hemodynamically stable, afebrile, nontoxic-appearing. Exam consistent with poor dentition and significant dental erosion. I considered the following differential diagnosis: Dental abscess, ANUG, Ludewig's angina, RPA, POMOLOGY TEACHER, dental caries, gingivitis Patient's clinical exam is consistent with poor dentition and likely dental nerve exposure. Offered dental block however patient refused. Gave oxycodone here but not for home-going. Gave strict return precautions and dental follow-up instructions. Shared decision making: I will have a discussion with the patient and or visitors regarding risk/benefits of further testing or admission. They will be made aware of of the risk/benefits inherent in this decision they will be given the opportunity to voice understanding. Impression: 1. Odontalgia 2. Acute on chronic dental pain 3. Dental caries Disposition: Discharge home This note was generated with [employer] dictation software. It may contain incorrect words, spelling, and punctuation that were not noted in review of the chart prior to signing. Discharge Plan Triage Chief Complaint: Dental ED Provider: Nader Gomez Dx/Rx/DC Orders Instructions: ED Dental Pain Prescriptions: No Action clindamycin HCl 150 mg capsule 300 mg PO 4X/DAY Qty: 80 0RF losartan 25 mg tablet 25 mg PO DAILY sertraline 50 mg tablet 50 mg PO DAILY Primary Care Provider: Essie Bryan NP Referrals: Essie Bryan NP, [employer]URITY SYSTEMS TECHNICIAN-C [Primary Care Provider] - Activity Restrictions/Additional Instructions: Thank you for trusting us with your care today! Please take Tylenol (2 pills, 650 mg), ibuprofen (2 pills, 400 mg) every 6 hours as needed for pain and fever control. Please return to the emergency department if your symptoms change or worsen. Please follow with your Dentist for further outpatient evaluation and management. Disposition Disposition: Home, Self Care Discharge Date/Time: 07/17/23 02:33
[2023-07-17] MEDS: oxyCODONE 5 MG Tablet PO (02:31)
[2023-07-17 02:32] VITALS: BP 144/99; PULSE 73; RESP 20; TEMP 35.8; O2SAT 96
== END 2023-07-17 02:33 | disposition home or self-care (01) ==
LOC: ED 02:30
PROVIDERS: Emergency Provider Emergency Medicine; PCP Internal Medicine; Visit Provider Emergency Medicine
DX: K08.89 Other specified disorders of teeth and supporting structures (principal); K02.9 Dental caries, unspecified; I10 Essential (primary) hypertension; F17.210 Nicotine dependence, cigarettes, uncomplicated; J45.909 Unspecified asthma, uncomplicated; F41.9 Anxiety disorder, unspecified; F32.A Depression, unspecified; Z79.899 Other long term (current) drug therapy
CPT/HCPCS: 99282